=== PATIENT | male | born 1955 | race Caucasian/White ===

== ENCOUNTER → 2017-10-08 07:05 | Outpatient (CLI) | payer MEDICARE ==
[2014-12-22 09:41] VITALS: BMI 26.1
[~2017-10-08 07:05] MED LIST: BAYER CHEWABLE81 MG PO; FLAGYL 500500 MG/100 PO; GEMFIBROZIL600 MG PO; HYDROCHLOROTH12.5 M1 PO; HYDROCODON-ACE1 EAC9 PO; NORVASC5 MG PO; PRAVACHOL40 MG PO; PRINIVIL20 MG PO; ROBAXIN-750750 MG PO; TIROSINT50 MCG PO; VOLTAREN75 MG PO
== END | disposition home or self-care (01) ==
LOC: D.US 10-07 08:30
DX: R10.9 Unspecified abdominal pain (principal)

== ENCOUNTER → 2017-10-23 07:46 | Outpatient (CLI) | payer MEDICARE ==
[2014-12-22 09:41] VITALS: BMI 26.1
== END | disposition home or self-care (01) ==
LOC: D.NM 07:46
DX: R10.9 Unspecified abdominal pain (principal)